=== PATIENT | male | born 1970 | race Caucasian/White ===

== ENCOUNTER 2016-08-15 15:20 | Emergency (ER) | payer OTHER ==
[~2016-08-15] VITALS: Ht 177.8 cm; Wt 65.8 kg
[~2016-08-15 15:20] MED LIST: CLINDAMYCIN HC300 MG PO; ULTRAM50 MG PO
[2016-08-15] MEDS ORDERED: NAPROSYN500 MG PO (15:45)
== END 2016-08-15 17:45 | disposition home or self-care (01) ==
LOC: ED 15:20
DX: R31.9 Hematuria, unspecified (principal); F17.200 Nicotine dependence, unspecified, uncomplicated; Z88.0 Allergy status to penicillin; Z88.5 Allergy status to narcotic agent
CPT/HCPCS: 80053; 81001; 85025; 99283

== ENCOUNTER 2016-11-11 11:42 | Emergency (ER) | payer OTHER ==
[~2016-11-11] VITALS: Ht 177.8 cm; Wt 65.8 kg
--- OUTSIDE RECORDS SUMMARY | ~2016-11-11 | XMS ---
Demographics + + + | Address | [address] | | | [place] [address] | + + + | Preferred Language | Unknown | + + + | Marital Status | Unknown | + + + | Episcopal Affiliation | Unknown | + + + | Race | Unknown | + + + | Ethnic Group | Unknown | + + + Author + + + | Author | [facility] | + + + | Organization | [facility] | + + + | Address | [address] | | | [place] [address] | + + + | Phone | | + + + Care Team Providers + + + + | Care Compensation And Benefits Administrator Name | Role | Phone | + + + + Unavailable | Unavailable | + + + + PROBLEMS +---------+ + + +--------+ + + | Type | Condition | ICD9-CM | [id number] | Onset | Condition | SNOMED | | | | Code | Code | Dates | Status | Code | +---------+ + + +--------+ + + | Problem | Hematuria | R31.9 | | | Active | [id number] | +---------+ + + +--------+ + + | Problem | Lower back | M54.5 | | | Active | 135141015 | | | pain | | | | | | +---------+ + + +--------+ + + | Problem | Urinary | | R39.11 | | Active | 3310099 | | | hesitancy | | | | | | +---------+ + + +--------+ + + | Problem | Tobacco | | Z72.0 | | Active | [id number] | | | use | | | | | | +---------+ + + +--------+ + + ALLERGIES Unknown Allergies SOCIAL HISTORY No smoking Hx information available PLAN OF CARE VITAL SIGNS MEDICATIONS Unknown Medications RESULTS No Results PROCEDURES No Known procedures IMMUNIZATIONS No Known Immunizations"
--- OUTSIDE RECORDS SUMMARY | ~2016-11-11 | XMS ---
Demographics + + + | Address | [address] | | | [place] [address] | + + + | Preferred Language | Unknown | + + + | Marital Status | Unknown | + + + | Sikhism Affiliation | Unknown | + + + | Race | Unknown | + + + | Ethnic Group | Unknown | + + + Author + + + | Author | [facility] | + + + | Organization | [facility] | + + + | Address | [address] | | | [place] [address] | + + + | Phone | | + + + Care Team Providers + + + + | Care Electrical Mechanical Technician Name | Role | Phone | + + + + Unavailable | Unavailable | + + + + PROBLEMS +---------+ + + +--------+ + + | Type | Condition | ICD9-CM | MYF96-[id number] | Onset | Condition | SNOMED | | | | Code | Code | Dates | Status | Code | +---------+ + + +--------+ + + | Problem | Hematuria | R31.9 | | | Active | [id number] | +---------+ + + +--------+ + + | Problem | Lower back | M54.5 | | | Active | 236066695 | | | pain | | | | | | +---------+ + + +--------+ + + | Problem | Urinary | | R39.11 | | Active | 4765845 | | | hesitancy | | | | | | +---------+ + + +--------+ + + | Problem | Tobacco | | Z72.0 | | Active | 247196782 | | | use | | | | | | +---------+ + + +--------+ + + ALLERGIES Unknown Allergies SOCIAL HISTORY No smoking Hx information available PLAN OF CARE VITAL SIGNS MEDICATIONS Unknown Medications RESULTS No Results PROCEDURES No Known procedures IMMUNIZATIONS No Known Immunizations"
--- OUTSIDE RECORDS SUMMARY | ~2016-11-11 | XMS ---
Demographics + + + | Address | [address] | | | [place] [address] | + + + | Preferred Language | Unknown | + + + | Marital Status | Unknown | + + + | Voodoo Affiliation | Unknown | + + + | Race | Unknown | + + + | Ethnic Group | Unknown | + + + Author + + + | Author | [facility] | + + + | Organization | [facility] | + + + | Address | [address] | | | [place] [address] | + + + | Phone | | + + + Care Team Providers + + + + | Care Operations Professional Name | Role | Phone | + + + + Unavailable | Unavailable | + + + + PROBLEMS +---------+ + + +--------+ + + | Type | Condition | ICD9-CM | SLW88-VR | Onset | Condition | SNOMED | | | | Code | Code | Dates | Status | Code | +---------+ + + +--------+ + + | Problem | Hematuria | R31.9 | | | Active | [id number] | +---------+ + + +--------+ + + | Problem | Lower back | M54.5 | | | Active | 191894903 | | | pain | | | | | | +---------+ + + +--------+ + + | Problem | Urinary | | R39.11 | | Active | 8544975 | | | hesitancy | | | | | | +---------+ + + +--------+ + + | Problem | Tobacco | | Z72.0 | | Active | 778367467 | | | use | | | | | | +---------+ + + +--------+ + + ALLERGIES + + + + +--------+ | Substance | Reaction | Event Type | Date | Status | + + + + +--------+ | Penicillin | anaphylaxis | Drug Allergy | Aug, | Active | + + + + +--------+ | Codeine | anaphylaxis | Drug Allergy | Aug, | Active | + + + + +--------+ SOCIAL HISTORY No smoking Hx information available PLAN OF CARE + +---------+ | Activity | Details | + +---------+ +---+ | | +---+ + + + | Follow Up | 4 Weeks Reason:null | + + + | Pending Test | X ray : Spine Lumbar Complete AP/L/O | + + + VITAL SIGNS + + + + | Height | 70 in | 2016-08-29 | + + + + | Weight | 139.8 lbs | 2016-08-29 | + + + + | BMI | 20.06 kg/m2 | 2016-08-29 | + + + + | Heart Rate | 76 /min | 2016-08-29 | + + + + | Blood pressure systolic | 120 mm Hg | 2016-08-29 | + + + + | Blood pressure diastolic | 75 mm Hg | 2016-08-29 | + + + + MEDICATIONS + + + + + + + +--------+ | Medicati | Instruct | Dosage | Frequenc | Start | End Date | Duration | Status | | on | ions | | y | Date | | | | + + + + + + + +--------+ | Flexeril | Orally | 1 tablet | 8h | | | | Active | | 10 MG | Three | | | | | | | | | times a | | | | | | | | | day | | | | | | | + + + + + + + +--------+ | Flomax | Orally | 1 | 24h | 22 Nixon, | 20 Sep, | 30 | Active | | 0.4 MG | Once a | capsule | | 2017 | 2017 | day(s) | | | | day | | | | | | | + + + + + + + +--------+ | Naproxen | Orally | 1 tablet | 12h | | 22 Nov, | 30 days | Active | | 500 MG | every 12 | as | | | 2016 | | | | | hrs | needed | | | | | | + + + + + + + +--------+ RESULTS No Results PROCEDURES + + + + + | Procedure | Date Ordered | Related Diagnosis | Body Site | + + + + + | Est Level III | August 29, 2016 | | | | Intermediate | | | | + + + + + | DSCHRG MED/CURRENT | August 29, 2016 | | | | MED MERGE | | | | + + + + + | DOC MEDS VERIFIED | August 29, 2016 | | | | W/PT OR RE | | | | + + + + + IMMUNIZATIONS No Known Immunizations"
--- OUTSIDE RECORDS SUMMARY | ~2016-11-11 | XMS ---
Demographics + + + | Address | [address] | | | [place] [address] | + + + | Preferred Language | Unknown | + + + | Marital Status | Unknown | + + + | Orthodoxy Affiliation | Unknown | + + + | Race | Unknown | + + + | Ethnic Group | Unknown | + + + Author + + + | Author | [facility] | + + + | Organization | [facility] | + + + | Address | [address] | | | [place] [address] | + + + | Phone | | + + + Care Team Providers + + + + | Care Lift Manager Name | Role | Phone | + + + + Unavailable | Unavailable | + + + + PROBLEMS +---------+ + + +--------+ + + | Type | Condition | ICD9-CM | CFH34-ZG | Onset | Condition | SNOMED | | | | Code | Code | Dates | Status | Code | +---------+ + + +--------+ + + | Problem | Hematuria | R31.9 | | | Active | [id number] | +---------+ + + +--------+ + + | Problem | Lower back | M54.5 | | | Active | 204913324 | | | pain | | | | | | +---------+ + + +--------+ + + | Problem | Urinary | | R39.11 | | Active | 5734931 | | | hesitancy | | | | | | +---------+ + + +--------+ + + | Problem | Tobacco | | Z72.0 | | Active | 409643090 | | | use | | | [...] + + + | Follow Up | 10 days Reason:null | + + + | Pending Test | Urinalysis, Complete | + + + | Pending Test | Urine Cytology | + + + | Pending Test | PSA Total+ Free | + + + | Pending Test | GC/Chlamydia Aptima | + + + | Pending Test | CT Scan : Abd & Pelvis w/ & w/out | | | contrast | + + + VITAL SIGNS + + + + | Height | 70 in | 2016-08-17 | + + + + | Weight | 138.2 lbs | 2016-08-17 | + + + + | BMI | 19.83 kg/m2 | 2016-08-17 | + + + + | Temperature | 98.5 degrees Fahrenheit | 2016-08-17 | + + + + | Heart Rate | 69 /min | 2016-08-17 | + + + + | Blood pressure systolic | 121 mm Hg | 2016-08-17 | + + + + | Blood pressure diastolic | 76 mm Hg | 2016-08-17 | + + + + MEDICATIONS + [...] | 1 tablet | 12h | | 12 Sep, | 30 days | Active | | 500 MG | every 12 | as | | | 2016 | | | | | hrs | needed | | | | | | + + + + + + + +--------+ | Cycloben | Orally | 1 tablet | | 13 Nixon, | 23 Nixon, | 10 days | Active | | zaprine | BID PRN | as | | 2016 | 2017 | | | | HCl 10 | lower | needed | | | | | | | MG | back | | | | | | | | | pain | | | | | | | + + + + + + + +--------+ RESULTS No Results PROCEDURES + + + + + | Procedure | Date Ordered | Related Diagnosis | Body Site | + + + + + | Est Level IV | August 17, 2016 | | | | Extended | | | | + + + + + | DSCHRG MED/CURRENT | August 17, 2016 | | | | MED MERGE | | | | + + + + + | DOC MEDS VERIFIED | August 17, 2016 | | | | W/PT OR RE | | | | + + + + + IMMUNIZATIONS No Known Immunizations"
--- OUTSIDE RECORDS SUMMARY | ~2016-11-11 | XMS ---
Demographics + + + | Address | [address] | | | [place] [address] | + + + | Preferred Language | Unknown | + + + | Marital Status | Unknown | + + + | Druze Affiliation | Unknown | + + + | Race | Unknown | + + + | Ethnic Group | Unknown | + + + Author + + + | Author | [facility] | + + + | Organization | [facility] | + + + | Address | [address] | | | [place] [address] | + + + | Phone | | + + + Care Team Providers + + + + | Care Microbiology Lab Assistant Name | Role | Phone | + + + + Unavailable | Unavailable | + + + + PROBLEMS +---------+ + + +--------+ + + | Type | Condition | ICD9-CM | ROL45-[id number] | Onset | Condition | SNOMED | | | | Code | Code | Dates | Status | Code | +---------+ + + +--------+ + + | Problem | Hematuria | R31.9 | | | Active | 22743807 | +---------+ + + +--------+ + + | Problem | Lower back | M54.5 | | | Active | 679511225 | | | pain | | | | | | +---------+ + + +--------+ + + | Problem | Urinary | | R39.11 | | Active | 6757912 | | | hesitancy | | | | | | +---------+ + + +--------+ + + | Problem | Tobacco | | Z72.0 | | Active | 650345200 | | | use | | | | | | +---------+ + + +--------+ + + ALLERGIES Unknown Allergies SOCIAL HISTORY No smoking Hx information available PLAN OF CARE VITAL SIGNS MEDICATIONS + + +---------+ + + + +--------+ | Medicati | Instruct | Dosage | Frequenc | Start | End Date | Duration | Status | | on | ions | | y | Date | | | | + + +---------+ + + + +--------+ | Flomax | Orally | 1 | 24h | 22 Nixon, | 20 Sep, | 30 | Active | | 0.4 MG | Once a | capsule | | 2017 | 2017 | day(s) | | | | day | | | | | | | + + +---------+ + + + +--------+ RESULTS No Results PROCEDURES No Known procedures IMMUNIZATIONS No Known Immunizations"
--- OUTSIDE RECORDS SUMMARY | ~2016-11-11 | XMS ---
Demographics + + + | Address | [address] | | | [place] [address] | + + + | Preferred Language | Unknown | + + + | Marital Status | Unknown | + + + | Yazidi Affiliation | Unknown | + + + | Race | Unknown | + + + | Ethnic Group | Unknown | + + + Author + + + | Author | [facility] | + + + | Organization | [facility] | + + + | Address | [address] | | | [place] [address] | + + + | Phone | | + + + Care Team Providers + + + + | Care Burlap Worker Name | Role | Phone | + + + + Unavailable | Unavailable | + + + + PROBLEMS +---------+ + + +--------+ + + | Type | Condition | ICD9-CM | IPY86-XI | Onset | Condition | SNOMED | | | | Code | Code | Dates | Status | Code | +---------+ + + +--------+ + + | Problem | Abnormal | R93.49 | | | Active | [id number] | | | findings | | | | | | | | on | | | | | | | | diagnostic | | | | | | | | imaging | | | | | | | | of urinary | | | | | | | | organs | | | | | | +---------+ + + +--------+ + + | Problem | Hematuria | R31.9 | | | Active | 10675287 | +---------+ + + +--------+ + + | Problem | Tobacco | | Z72.0 | | Active | 846067297 | | | use | | | | | | +---------+ + + +--------+ + + | Problem | Lower back | M54.5 | | | Active | 804134718 | | | pain | | | | | | +---------+ + + +--------+ + + | Problem | Urinary | | R39.11 | | Active | 9221654 | | | hesitancy | | | | | | +---------+ + + +--------+ + + ALLERGIES + + + + +--------+ | Substance | Reaction | Event Type | Date | Status | + + + + +--------+ | Penicillin | anaphylaxis | Drug Allergy | Sep, | Active | + + + + +--------+ | Codeine | anaphylaxis | Drug Allergy | Sep, | Active | + + + + +--------+ SOCIAL HISTORY No smoking Hx information available PLAN OF CARE + +---------+ | Activity | Details | + +---------+ +---+ | | +---+ + + + | Follow Up | 3 Months Reason:null | + + + VITAL SIGNS + + + + | Height | 70 in | 2016-09-28 | + + + + | Weight | 143 lbs | 2016-09-28 | + + + + | BMI | 20.52 kg/m2 | 2016-09-28 | + + + + | Temperature | 97.7 degrees Fahrenheit | 2016-09-28 | + + + + | Heart Rate | 87 /min | 2016-09-28 | + + + + | Blood pressure systolic | 138 mm Hg | 2016-09-28 | + + + + | Blood pressure diastolic | 86 mm Hg | 2016-09-28 | + + + + MEDICATIONS + [...] 1 | 24h | 22 Nixon, | 22 Dec, | 30 | Active | | 0.4 MG | Once a | capsule | | 2017 | 2017 | day(s) | | | | day | | | | | | | + + + + + + + +--------+ | Cycloben | Orally Q | 1 tablet | | 13 Nixon, | 22 Jan, | 30 | Active | | zaprine | HS PRN | | | 2016 | 2016 | day(s) | | | HCl 10 | back | | | | | | | | mg | pain/mus | | | | | | | | | kale | | | | | | | | | spasm | | | | | | | + + + + + + + +--------+ | Naproxen | Orally | 1 tablet | 12h | | 22 Dec, | 30 days | Active | | 500 MG | every 12 | as | | | 2017 | | | | | hrs | [...] + + | Est Level III | Sep 28, 2016 | | | | Intermediate | | | | + + + + + | DSCHRG MED/CURRENT | Sep 28, 2016 | | | | MED MERGE | | | | + + + + + | DOC MEDS VERIFIED | Sep 28, 2016 | | | | W/PT OR RE | | | | + + + + + IMMUNIZATIONS No Known Immunizations"
--- OUTSIDE RECORDS SUMMARY | ~2016-11-11 | XMS ---
Demographics + + + | Address | [address] | | | [place] [address] | + + + | Preferred Language | Unknown | + + + | Marital Status | Unknown | + + + | Uatsdin Affiliation | Unknown | + + + | Race | Unknown | + + + | Ethnic Group | Unknown | + + + Author + + + | Author | [facility] | + + + | Organization | [facility] | + + + | Address | [address] | | | [place] [address] | + + + | Phone | | + + + Care Team Providers + + + + | Care Dental Director Name | Role | Phone | + + + + Unavailable | Unavailable | + + + + PROBLEMS +---------+ + + +--------+ + + | Type | Condition | ICD9-CM | HWM48-TS | Onset | Condition | SNOMED | | | | Code | Code | Dates | Status | Code | +---------+ + + +--------+ + + | Problem | Abnormal | R93.49 | | | Active | 137650873 | | | findings | | | [...] | R31.9 | | | Active | 23039792 | +---------+ + + +--------+ + + | Problem | Tobacco | | Z72.0 | | Active | 365693970 | | | use | | | | | | +---------+ + + +--------+ + + | Problem | Lower back | M54.5 | | | Active | 027437899 | | | pain | | | | | | +---------+ + + +--------+ + + | Problem | Urinary | | R39.11 | | Active | 4471494 | | | hesitancy | | | | | | +---------+ + + +--------+ + + ALLERGIES No Information SOCIAL HISTORY Never Assessed PLAN OF CARE VITAL SIGNS MEDICATIONS Unknown Medications RESULTS No Results PROCEDURES No Known procedures IMMUNIZATIONS No Known Immunizations MEDICAL (GENERAL) HISTORY + + +------+ | Type | Description | Date | + + +------+ | Medical History | Denies asthma, HTN, heart | | | | disease, thyroid disease, | | | | DM. | | + + +------+ | Medical History | 1995 head injury with | | | | concussion and loss of | | | | consciousness. No problems | | | | now. Did have a few | | | | seizures after it for a | | | | brief time but they | | | | resolved. | | + + +------+ | Surgical History | Replacement of ACL R | 2011 | + + +------+ | Surgical History | teeth removed. | | + + +------+"
--- OUTSIDE RECORDS SUMMARY | ~2016-11-11 | XMS ---
Demographics + + + | Address | [address] | | | [place] [address] | + + + | Preferred Language | Unknown | + + + | Marital Status | Unknown | + + + | Adventist Affiliation | Unknown | + + + | Race | Unknown | + + + | Ethnic Group | Unknown | + + + Author + + + | Author | [facility] | + + + | Organization | [facility] | + + + | Address | [address] | | | [place] [address] | + + + | Phone | | + + + Care Team Providers + + + + | Care Managed Care Analyst Name | Role | Phone | + + + + Unavailable | Unavailable | + + + + PROBLEMS +---------+ + + +--------+ + + | Type | Condition | ICD9-CM | YIR15-SR | Onset | Condition | SNOMED | | | | Code | Code | Dates | Status | Code | +---------+ + + +--------+ + + | Problem | Hematuria | R31.9 | | | Active | 34109704 | +---------+ + + +--------+ + + | Problem | Lower back | M54.5 | | | Active | 916441815 | | | pain | | | | | | +---------+ + + +--------+ + + | Problem | Urinary | | R39.11 | | Active | 4742788 | | | hesitancy | | | | | | +---------+ + + +--------+ + + | Problem | Tobacco | | Z72.0 | | Active | 509912164 | | | use | | | | | | +---------+ + + +--------+ + + ALLERGIES Unknown Allergies SOCIAL HISTORY No smoking Hx information available PLAN OF CARE VITAL SIGNS MEDICATIONS Unknown Medications RESULTS No Results PROCEDURES No Known procedures IMMUNIZATIONS No Known Immunizations"
--- OUTSIDE RECORDS SUMMARY | ~2016-11-11 | XMS ---
Demographics + + + | Address | [address] | | | [place] [address] | + + + | Preferred Language | Unknown | + + + | Marital Status | Unknown | + + + | Mandaen Affiliation | Unknown | + + + | Race | Unknown | + + + | Ethnic Group | Unknown | + + + Author + + + | Author | [facility] | + + + | Organization | [facility] | + + + | Address | [address] | | | [place] [address] | + + + | Phone | | + + + Care Team Providers + + + + | Care Chief I Dispatcher Name | Role | Phone | + + + + Unavailable | Unavailable | + + + + PROBLEMS +---------+ + + +--------+ + + | Type | Condition | ICD9-CM | XCD71-PL | Onset | Condition | SNOMED | | | | Code | Code | Dates | Status | Code | +---------+ + + +--------+ + + | Problem | Abnormal | R93.49 | | | Active | [id number] | | | findings | | | [...] | R31.9 | | | Active | 59381917 | +---------+ + + +--------+ + + | Problem | Tobacco | | Z72.0 | | Active | 101717367 | | | use | | | | | | +---------+ + + +--------+ + + | Problem | Lower back | M54.5 | | | Active | 504694398 | | | pain | | | | | | +---------+ + + +--------+ + + | Problem | Urinary | | R39.11 | | Active | 1305867 | | | hesitancy | | | [...]
[~2016-11-11 11:42] MED LIST changes: +NAPROSYN500 MG PO
[2016-11-11] MEDS ORDERED: CYCLOBENZAPRINE10 MG PO (11:54)
[2016-11-11] MEDS ORDERED: TAMSULOSIN HCL0.4 MG PO (11:54)
== END 2016-11-11 12:00 | disposition home or self-care (01) ==
LOC: ED 11:42
DX: Z00.8 Encounter for other general examination (principal)

== ENCOUNTER 2016-11-11 12:05 | Emergency (ER) | payer OTHER ==
[~2016-11-11] VITALS: Ht 177.8 cm; Wt 73.5 kg
[~2016-11-11 12:05] MED LIST changes: +CYCLOBENZAPRINE10 MG PO; +TAMSULOSIN HCL0.4 MG PO
== END 2016-11-11 13:24 | disposition home or self-care (01) ==
LOC: ED 12:05
PROC: 0PSPXZZ Reposition Right Metacarpal, External Approach (ICD-10-PCS; principal; 2016-11-11)
DX: S62.336A Displaced fracture of neck of fifth metacarpal bone, right hand, initial encounter for closed fracture (principal); F17.200 Nicotine dependence, unspecified, uncomplicated; Z88.0 Allergy status to penicillin; Z88.5 Allergy status to narcotic agent; Z79.899 Other long term (current) drug therapy; W01.198A Fall on same level from slipping, tripping and stumbling with subsequent striking against other object, initial encounter
CPT/HCPCS: 26605; 73130; 99283

== ENCOUNTER 2016-11-20 08:55 | Day surgery (SDC) | payer OTHER ==
[~2016-11-20] VITALS: Ht 177.8 cm; Wt 73.5 kg
[2016-11-20] MEDS ORDERED: HYDROCODON-ACE1 EA11 PO (12:10)
--- NOTE | 2016-11-21 08:19 | OR ---
[facility] [address] [place], [place] [address] Signed DATE OF PROCEDURE: 11/20/16 PREOPERATIVE DIAGNOSIS: Displaced right 5th metacarpal fracture, distal. POSTOPERATIVE DIAGNOSIS: Displaced right 5th metacarpal fracture, distal. PROCEDURE PERFORMED Open reduction and internal fixation, right 5th metacarpal. MECHANICAL INSPECTOR: None. TOURNIQUET TIME: 47 minutes. ANESTHESIA: General with axillary block. IMPLANTS: A 1.5 mm titanium blade plate with 5 screws. BRIEF HISTORY Ramez is a 46-year-old gentleman who claims he fell fracturing his right distal 5th metacarpal. This was oblique and unstable and was completely displaced. Risks and benefits of operation were discussed with him. He elected to proceed. DESCRIPTION OF PROCEDURE Once consent was obtained, he was taken the operating room. After adequate anesthesia, was placed on the operating room table. All downside pressure points were well padded and a well-padded proximal arm tourniquet was placed. The arm was then prepped and draped in a standard sterile fashion. The arm was exsanguinated using Esmarch bandage. Tourniquet was inflated to 2 00 mmHg. A 2-inch incision was made over the lateral dorsal aspect of the 5th metacarpal, carried through the skin and subcutaneous. Care had been taken to protect neurovascular structures and the tendons. The periosteum was elevated off the fracture site and the fracture was reduced and held with a single 1.25 K-wire. The condylar blade plate was then fashioned to fit the metacarpal appropriately. A drill hole was made for the blade portion and the plate was placed through this under image intensifier guidance. The plate was aligned with the shaft and the 2 screws were placed proximally. We then carefully checked the plate placement. Fracture reduction was found to be adequate. The remaining screw holes were placed, 1 screw was placed in the condyle itself drawing the condyle over to the plate. The final imaging showed the fracture to be well reduced, the plate and screw length to be appropriate. The wound was irrigated with antibiotic solution, closed with 4-0 Monocryl and 3-0 nylon. Dressed with Mepilex Ag dressing, sterile cast padding and placed back into a boxer splint. He was then awakened and taken recovery in satisfactory condition. All sponge, needle, instrument counts were correct. Electronically Signed By: JACKIE MASON MD 11/21/16 0819 PATIENT NAME: RAMEZ AGUILAR OPERATIVE REPORT DATE OF : 72 PHYSICIAN: JACKIE MASON MD REPORT #: [id number] REPORT IS CONFIDENTIAL AND NOT TO BE RELEASED WITHOUT AUTHORIZATION [facility] [address] [place] [address] Signed Jcakie Mason MD BA/Jacquelin /[id number] cc: NADEGE Alford Electronically Signed By: JACKIE MASON MD 11/21/16 0819 PATIENT NAME: RAMEZ AGUILAR OPERATIVE REPORT DATE OF : 72 PHYSICIAN: JACKIE MASON MD REPORT #: [id number] REPORT IS CONFIDENTIAL AND NOT TO BE RELEASED WITHOUT AUTHORIZATION
== END 2016-11-20 14:25 | disposition home or self-care (01) ==
LOC: OPS 08:55 → DS 08:55 → OPS 11:15
PROVIDERS: Specialist
PROC: 0PSP04Z Reposition Right Metacarpal with Internal Fixation Device, Open Approach (ICD-10-PCS; principal; 2016-11-20 11:15)
DX: S62.336A Displaced fracture of neck of fifth metacarpal bone, right hand, initial encounter for closed fracture (principal); F17.210 Nicotine dependence, cigarettes, uncomplicated; Z88.0 Allergy status to penicillin; Z88.5 Allergy status to narcotic agent; Z98.890 Other specified postprocedural states; W01.0XXA Fall on same level from slipping, tripping and stumbling without subsequent striking against object, initial encounter
CPT/HCPCS: 01820; 64417; 73120; 76942; C1713; J0690; J1100; J1885; J2250; J2405; J2704; J2795; J3010; J7120

== ENCOUNTER 2017-05-29 13:04 | Emergency (ER) | payer OTHER ==
[~2017-05-29] VITALS: Ht 177.8 cm; Wt 73.5 kg
--- OUTSIDE RECORDS SUMMARY | ~2017-05-29 | XMS | Clinical Summary ---
Demographics + + + | Address | [address] | | | [place] [address] | + + + | Home Phone | | + + + | Preferred Language | Unknown | + + + | Marital Status | | + + + | Sikhism Affiliation | Unknown | + + + | Race | Unknown | + + + | Ethnic Group | Unknown | + + + Author + + + | Author | [facility] | | | and [place] | + + + | Organization | [facility] | | | and [place] | + + + | Address | Unknown | + + + | Phone | Unavailable | + + + Support + + +---------+ + | Name | Relationship | Address | Phone | + + +---------+ + | Ronna [facility] | ECON | Unknown | | + + +---------+ + Care Team Providers + +------+ + | Care Sound Controller Name | Role | Phone | + +------+ + PP | Unavailable | + +------+ + Allergies Not on File Current Medications Not on file Active Problems Not on file Social History + +-------+ +--------+------+ | Tobacco Use | Types | Packs/Day | Years | Date | | | | | Used | | + +-------+ +--------+------+ | Never Assessed | | | | | + +-------+ +--------+------+ + + + | Sex Assigned at | Date Recorded | | | | + + + | Not on file | | + + + Plan of Treatment + + + + + | Health Maintenance | Due Date | Last Done | Comments | + + + + + | Vaccine: | | | | | Dtap/Tdap/Td (1 - | 1 | | | | Tdap) | | | | + + + + + | Vaccine: Influenza | | | | | (Season Ended) | 8 | | | + + + + + Results Not on filefrom Last 3 Months"
--- OUTSIDE RECORDS SUMMARY | ~2017-05-29 | XMS | Clinical Summary ---
Demographics + + + | Address | [address] | | | [place] [address] | + + + | Home Phone | | + + + | Preferred Language | Unknown | + + + | Marital Status | | + + + | Zoroastrian Affiliation | Unknown | + + + | Race | Unknown | + + + | Ethnic Group | Unknown | + + + Author + + + | Author | [facility] | | | and [place] | + + + | Organization | [facility] | | | and [place] | [...] Team Providers + +------+ + | Care Tank Processor Name | Role | Phone | + [...]
[~2017-05-29 13:04] MED LIST changes: +HYDROCODON-ACE1 EA11 PO
== END 2017-05-29 13:30 | disposition home or self-care (01) ==
LOC: ED 13:04
DX: S71.131A Puncture wound without foreign body, right thigh, initial encounter (principal); X58.XXXA Exposure to other specified factors, initial encounter; Y93.H3 Activity, building and construction; Y92.009 Unspecified place in unspecified non-institutional (private) residence as the place of occurrence of the external cause

== ENCOUNTER 2017-08-06 11:55 | Emergency (ER) | payer OTHER ==
[~2017-08-06] VITALS: Ht 177.8 cm; Wt 73.5 kg
[2017-08-06] MEDS ORDERED: PERCOCET 7.5-31 EACH PO (13:39)
== END 2017-08-06 14:15 | disposition home or self-care (01) ==
LOC: ED 11:55
DX: M75.92 Shoulder lesion, unspecified, left shoulder (principal); F17.200 Nicotine dependence, unspecified, uncomplicated; Z88.0 Allergy status to penicillin; Z88.5 Allergy status to narcotic agent
CPT/HCPCS: 73030; 99283

== ENCOUNTER 2023-06-28 08:53 | Emergency (ER) | payer OTHER ==
[~2023-06-28] VITALS: Ht 177.8 cm; Wt 57.9 kg
[~2023-06-28 08:53] MED LIST changes: +PERCOCET 7.5-31 EACH PO
[2023-06-28] MEDS ORDERED: fentaNYL citrate 100 MCG/2 ML VIAL IV ONE ×2 (09:15→11:45)
[2023-06-28] MEDS ORDERED: SODIUM CHLORIDE 0.9% 1,000 ML IV ONE ×2 (09:15→10:45)
[2023-06-28] MEDS ORDERED: ondansetron HCL 4 MG/2 ML VIAL IV ONE (09:15)
[2023-06-28 10:13] LABS: BASOPHILS 0.7 % (0-2); EOSINOPHILS 0.3 % (0-6); HEMATOCRIT 47.6 % (35.0-50.0); LYMPHOCYTES 8.2 % (24-44); MCH 32.3 (27-36); MCHC 33.5 g/dl (30-36); MCV 96.1 fl (81-99); MONOCYTES 5.7 % (0-12); NEUTROPHILS 85.1 % (39-80); PLATELET COUNT 239 K/uL (140-440); RBC 4.95 M/ul (4.3-5.7); RDW 13.6 (10.5-15.0)
[2023-06-28 10:27] LABS: ALBUMIN 3.4 g/dL (3.4-5.0); ALBUMIN/GLOBULIN RATIO 0.94 (1.1-2.4); ANION GAP 14.5 (7-21); BILIRUBIN, TOTAL 0.9 ng/dL (0.2-1.0); BUN/CREATININE RATIO 13.39 (6.0-28.6); CALCIUM 8.5 mg/dL (8.5-10.1); CREATININE, SERUM 1.12 mg/dL (0.70-1.30); POTASSIUM 3.5 mmol/L (3.5-5.1)
[2023-06-28 11:49] LABS: BILIRUBIN, URINE NEGATIVE (negative); BLOOD/HGB, URINE NEGATIVE (Negative); KETONE, URINE NEGATIVE (Negative); LEUK ESTERASE, URINE NEGATIVE (negative); NITRITE, URINE NEGATIVE (negative)
[2023-06-28 12:18] LABS: BACTERIA, URINE RARE /hpf (negative); CASTS, URINE NONE SEEN \\lpf; COLLECTION TYPE, URINE CLEAN CATCH; CRYSTALS, URINE NONE SEEN (0-1+); EPITHELIAL CELLS, URINE SQUAMOUS 1+ /lpf (0-1+); RED BLOOD CELLS, URINE 0-1 /hpf (0-5); REFLEX CULTURE, URINE No (No)
[2023-06-28] MEDS ORDERED: SENNA-DOCUSATE1 EAC1 PO (13:13)
[2023-06-28] MEDS ORDERED: PERCOCET 5-3251 EACH PO (13:13)
[2023-06-28] MEDS ORDERED: FIBER500 MG PO (13:13)
[2023-06-28] MEDS ORDERED: ONDANSETRON ODT8 MG PO (13:13)
[2023-06-28 13:29] VITALS: BP 124/77
== END 2023-06-28 13:24 | disposition home or self-care (01) ==
LOC: ED 08:53
PROVIDERS: Emergency Medicine
DX: K52.9 Noninfective gastroenteritis and colitis, unspecified (principal); M54.50 Low back pain, unspecified
CPT/HCPCS: 36415; 74177; 80053; 81001; 83605; 85025; J2405; J3010; J7030; Q9967

== ENCOUNTER 2023-12-06 23:16 | Emergency (ER) | payer OTHER ==
[~2023-12-06] VITALS: Ht 177.8 cm; Wt 67.4 kg
[~2023-12-06 23:16] MED LIST changes: +FIBER500 MG PO; +ONDANSETRON ODT8 MG PO; +PERCOCET 5-3251 EACH PO; +SENNA-DOCUSATE1 EAC1 PO
[2023-12-06 23:30] LABS: HEMOGLOBIN 16.5 g/dL (12.0-18.0); MCH 32.4 (27-36); RDW 13.7 (10.5-15.0)
[2023-12-06] MEDS ORDERED: ondansetron HCL 4 MG/2 ML VIAL IV ONE (23:30)
[2023-12-06] MEDS ORDERED: KETOROLAC TROMETHAMINE 30 MG/ML VIAL IV ONE (23:30)
[2023-12-06] MEDS ORDERED: DIPHTH,PERTUSS(ACELL),TET VAC 0.5 ML SYRINGE IM ONE (23:30)
[2023-12-06 23:33] LABS: BASOPHILS 0.3 % (0-2); HEMATOCRIT 49.2 % (35.0-50.0); LYMPHOCYTES 33.2 % (24-44); MCHC 33.5 g/dl (30-36); MCV 96.9 fl (81-99); MONOCYTES 7.5 % (0-12); PLATELET COUNT 274 K/uL (140-440); RBC 5.07 M/ul (4.3-5.7)
[2023-12-06 23:37] LABS: BILIRUBIN, URINE NEGATIVE (negative); BLOOD/HGB, URINE NEGATIVE (Negative); KETONE, URINE NEGATIVE (Negative); LEUK ESTERASE, URINE NEGATIVE (negative); NITRITE, URINE NEGATIVE (negative)
[2023-12-06 23:45] LABS: ALBUMIN/GLOBULIN RATIO 0.98 (1.1-2.4); ANION GAP 17.8 (7-21); BILIRUBIN, TOTAL 0.4 ng/dL (0.2-1.0); BUN/CREATININE RATIO 9.18 (6.0-28.6); CALCIUM 8.8 mg/dL (8.5-10.1); CREATININE, SERUM 0.98 mg/dL (0.70-1.30); POTASSIUM 3.8 mmol/L (3.5-5.1); PROTEIN, TOTAL 8.1 g/dL (6.4-8.2)
[2023-12-06 23:51] LABS: AMPHETAMINES, URINE NEGATIVE (NEGATIVE); BARBITURATES, URINE NEGATIVE (NEGATIVE); BENZODIAZEPINE, URINE NEGATIVE (NEGATIVE); BUPRENORPHINE, URINE NEGATIVE (NEGATIVE); CANNABINOID, URINE POSITIVE (NEGATIVE); COCAINE, URINE NEGATIVE (NEGATIVE); ECSTASY, URINE NEGATIVE (NEGATIVE); FENTANYL, URINE NEGATIVE (NEGATIVE); METHADONE, URINE NEGATIVE (NEGATIVE); OPIATES, URINE NEGATIVE (NEGATIVE); OXYCODONE, URINE NEGATIVE (NEGATIVE); PHENCYCLIDINE, URINE NEGATIVE (NEGATIVE)
[2023-12-07] MEDS ORDERED: CYCLOBENZAPRINE10 MG PO (00:45)
[2023-12-07] MEDS ORDERED: TRAMADOL HCL 50 MG TAB PO ONE (01:00)
[2023-12-07 01:15] VITALS: BP 106/60
== END 2023-12-07 01:15 | disposition home or self-care (01) ==
LOC: ED 23:16
PROVIDERS: Family Medicine
DX: S39.012A Strain of muscle, fascia and tendon of lower back, initial encounter (principal); M54.2 Cervicalgia; F17.200 Nicotine dependence, unspecified, uncomplicated; Z88.0 Allergy status to penicillin; Z88.5 Allergy status to narcotic agent; Z79.899 Other long term (current) drug therapy; V48.9XXA Unspecified car occupant injured in noncollision transport accident in traffic accident, initial encounter
CPT/HCPCS: 36415; 70450; 71260; 72125; 72128; 72131; 74177; 80053; 80307; 81003; 85025; 85060; 90471; 90715; 96374; 96375; 99284-25; G0480; J1885; J2405

== ENCOUNTER 2024-02-28 12:15 | Emergency (ER) | payer OTHER ==
[~2024-02-28] VITALS: Ht 177.8 cm; Wt 60.8 kg
[2024-02-28] MEDS ORDERED: ACETAMINOPHEN 500 MG TAB PO ONE (14:15)
[2024-02-28] MEDS ORDERED: IBUPROFEN 600 MG TAB PO ONE (14:15)
[2024-02-28 16:26] VITALS: BP 124/75
== END 2024-02-28 16:27 | disposition home or self-care (01) ==
LOC: ED 12:15
DX: B34.9 Viral infection, unspecified (principal); F17.200 Nicotine dependence, unspecified, uncomplicated; Z88.0 Allergy status to penicillin; Z88.5 Allergy status to narcotic agent
CPT/HCPCS: 71046; 99283-25; A9270